=== PATIENT | female | born 1970 ===

== ENCOUNTER → 2018-02-09 | Day surgery (SDC) | payer BC ==
[~2018-02-09] MED LIST: Bupivacaine 0.25% SDV PF* 10 ML VIAL INJ ONE; Morphine VIAL* 10 MG/ML 1 ML VIAL ONE; Naloxone* 0.4 MG/ML 1 ML VIAL IV PRN; Propofol* 10 MG/ML 20 ML BTL IV PUSH ONE
[2018-02-09 10:17] VITALS: BP 114/72
--- NOTE | 2018-02-10 04:31 | OP ---
DATE OF OPERATION: 02/09/18 - [facility] DATE OF : 66 SURGEON: Sidney Worley MD CORPORATE VP ADVERTISING & ONLINE: JENNIFFER Wu. ANESTHESIOLOGIST: Dr. Perez. ANESTHESIA: Local MAC. PRE-OP DIAGNOSIS: Chronic left ring trigger finger. POST-OP DIAGNOSIS: Chronic left ring trigger finger. OPERATIVE PROCEDURE: Left ring trigger finger release with tenosynovectomy. ESTIMATED BLOOD LOSS: 1 mL. COMPLICATIONS: None. FINDINGS: See above and below. DESCRIPTION OF PROCEDURE: Deysi was seen in the preoperative holding area. The correct side, site, and procedure were identified. We came back to the operating room. I anesthetized the operative area with 0.25% Marcaine. The arm was then prepped and draped in the usual fashion. A time-out was performed. I made a V-shaped incision centered over the A1 barbie of the left ring finger. Dissection was carried down and full-thickness flaps were raised off of the A1 barbie area. I went ahead and incised the A1 barbie longitudinally along its radial 3rd. There was a quite a bit of tenosynovitis and I excised all of this. Once everything was nice and clean, I irrigated out the wound and closed the skin flap with 4-0 nylon suture. The wound was dressed and tourniquet was deflated and she was taken to recovery room in stable condition. [id number]/[facility] #: [id number] MTDD
== END | disposition home or self-care (01) ==
LOC: OR 07:37
PROVIDERS: ATTEND Orthopaedic Surgery Hand Surgery
DX: M65.342 Trigger finger, left ring finger (principal); E03.9 Hypothyroidism, unspecified; E78.00 Pure hypercholesterolemia, unspecified; Z85.820 Personal history of malignant melanoma of skin; G56.01 Carpal tunnel syndrome, right upper limb
CPT/HCPCS: 81025; J2270; J2704; J3490

== ENCOUNTER 2018-04-02 06:31 | Day surgery (SDC) | payer BC ==
[~2018-04-02 06:31] MED LIST changes: -Bupivacaine 0.25% SDV PF* 10 ML VIAL INJ ONE; +Famotidine IV* 10 MG/ML 2 ML (20 mg) IV ONE; +Lactated Ringers 1000 ML Bag* 1,000 ML IV SCH; -Morphine VIAL* 10 MG/ML 1 ML VIAL ONE; -Naloxone* 0.4 MG/ML 1 ML VIAL IV PRN; -Propofol* 10 MG/ML 20 ML BTL IV PUSH ONE
[2018-04-02] MEDS ORDERED: Famotidine IV* 10 MG/ML 2 ML (20 mg) ONE (06:33)
[2018-04-02] MEDS ORDERED: Midazolam* 1 MG/ML 2 ML VIAL (2 MG) ONE (07:17)
[2018-04-02] MEDS ORDERED: fentaNYL* 50 MCG/ML 2 ML VIAL (100 MCG VIAL) ONE ×2 (07:17→07:54)
[2018-04-02] MEDS ORDERED: Bupivacaine 0.25% SDV PF* 10 ML VIAL INJ ONE (07:25)
[2018-04-02] MEDS ORDERED: Dexamethasone IV* 4 MG/ML 1 ML (4 MG) ONE (07:33)
[2018-04-02] MEDS ORDERED: Propofol* 10 MG/ML 20 ML BTL ONE ×2 (07:33→07:54)
[2018-04-02] MEDS ORDERED: Ondansetron INJ* 2 MG/ML VIAL ONE (07:33)
[2018-04-02] MEDS ORDERED: Ketorolac INJ* 30 MG/ML 1 ML VIAL ONE (07:33)
[2018-04-02] MEDS ORDERED: DiMENhydriNATE IV* 50 MG/ML VIAL IV PUSH PRN (07:57)
[2018-04-02] MEDS ORDERED: fentaNYL* 50 MCG/ML 2 ML VIAL (100 MCG VIAL) IV PRN (07:57)
[2018-04-02] MEDS ORDERED: Succinylcholine* 20 MG/ML 10 ML VIAL ONE (07:57)
[2018-04-02] MEDS ORDERED: Naloxone* 0.4 MG/ML 1 ML VIAL IV PRN (07:57)
[2018-04-02] MEDS ORDERED: HYDROcodone/ACETAMIN 5-325 MG* 1 TAB PO PRN (07:57)
[2018-04-02] MEDS ORDERED: diPHENhydraMINE IV* 50 MG/ML 1 ml VIAL (BENADRYL) IV PRN (07:57)
[2018-04-02] MEDS ORDERED: PROCHLORPERAZINE INJ 5 MG/ML 2 ML VIAL IV PRN (07:57)
[2018-04-02] MEDS ORDERED: Ondansetron INJ* 2 MG/ML VIAL IV PRN (07:57)
[2018-04-02] MEDS ORDERED: Acetaminophen TAB* 325 MG PO PRN (07:57)
[2018-04-02] MEDS ORDERED: DiMENhydriNATE IV* 50 MG/ML VIAL ONE (08:51)
[2018-04-02 09:01] VITALS: BP 114/73
--- NOTE | 2018-04-02 13:42 | OP ---
DATE OF OPERATION: 04/02/18 [facility] DATE OF : 66 SURGEON: Sidney Worley MD. HIV/AIDS CARE NURSE: JENNIFFER Wu. ANESTHESIOLOGIST: Dr. Siddiqui. ANESTHESIA: General. PRE-OP DIAGNOSIS: Right carpal tunnel syndrome. POST-OP DIAGNOSIS: Right carpal tunnel syndrome. OPERATIVE PROCEDURE: Right endoscopic carpal tunnel release. INDICATIONS: Deysi has the aforementioned carpal tunnel. We talked about risks and benefits. She wanted to proceed with surgery. ESTIMATED BLOOD LOSS: 1 mL. COMPLICATIONS: None. FINDINGS: See above and below. DESCRIPTION OF PROCEDURE: Deysi was seen in the preoperative holding area. The correct site, side, and procedure were identified. She came back to the operating room. Anesthesia was induced. The arm was then prepped and draped in the usual fashion. I made 1 cm transverse incision just ulnar to the palmaris longus tendon and just proximal to the wrist flexion crease. This was after the arm had been exsanguinated and the tourniquet was inflated. Dissection was carried down, the antebrachial fascia was opened and a U flap was raised. A skin hook was placed to hold up the fascial flap. I then used the synovial stripper, followed by sequentially larger dilators to open up the space. The endoscopic carpal tunnel device was then introduced and this was kept firmly against the hook of the hamate. Great care was taken to make sure that the median nerve was out of the field of view. I began the release distally. The released the distal third to half of the ligament first. I confirmed the decompression distally and then came proximally and released the remainder of the ligament. I placed a Aleida retractor to retract the subcutaneous tissue, then I confirmed the release of the ligament in its entirety. I then came proximally and released the antebrachial fascia, everything was looking good at this point. So , we irrigated out the wound. The skin was closed with a 4-0 Monocryl suture. The wound was dressed with Steri-Strips, 4 x 4s, and soft dressings. She was taken to the recovery room in stable conation. [id number]/[facility] #: [id number] [facility] NETWORKNiurka
== END 2018-04-02 09:48 | disposition home or self-care (01) ==
LOC: OREAST 06:31
PROVIDERS: ATTEND Orthopaedic Surgery Hand Surgery
DX: G56.01 Carpal tunnel syndrome, right upper limb (principal); E78.5 Hyperlipidemia, unspecified; E03.9 Hypothyroidism, unspecified
CPT/HCPCS: J0330; J1100; J1240; J1885; J2250; J2405; J2704; J3010; J3490